=== PATIENT | female | born 1970 | race Hispanic/Latino ===

== ENCOUNTER 2018-12-01 06:12 | Day surgery (SDC) | payer BC ==
[2018-11-30 16:57] VITALS: BP 117/66
[2018-11-30 17:05] LABS: EOSINOPHILS % (AUTO) 4.8 % (0.0-8.0); HEMATOCRIT 31.9 % (36-48); MEAN CORPUSCULAR HEMOGLOBIN 27.9 pg (27.0-33.0); MEAN CORPUSCULAR HGB CONC 32.9 g/dL (32.0-36.0); MEAN CORPUSCULAR VOLUME 84.9 fL (79-99); MONOCYTES % (AUTO) 9.8 % (3.0-13.0); NEUTROPHILS % (AUTO) 52.4 % (40.0-77.0); NUCLEATED RED BLOOD CELLS 0.1 % (0.0-0.19); PLATELET COUNT (AUTO) 194 K/uL (130-400); RED BLOOD CELL COUNT(AUTO) 3.76 MIL/uL (4.00-5.50); RED CELL DISTRIBUTION WIDTH 16.7 % (11.0-15.5); WHITE BLOOD COUNT (AUTO) 4.6 K/uL (4.8-10.8)
[~2018-12-01] VITALS: Ht 152.4 cm; Wt 58.4 kg
[2018-12-01] VITALS (21 sets, daily range): BP systolic 95–131; BP diastolic 42–66
[2018-12-01] MEDS ORDERED: CEFAZOLIN SODIUM 1 GM VIAL ONE (06:40)
[2018-12-01] MEDS: CEFAZOLIN SODIUM 1 GM VIAL IVP ONE ×2 (07:09→07:20)
[2018-12-01] MEDS ORDERED: LIDOCAINE PF 2% 5ML ABBOJECT ONE (07:12)
[2018-12-01] MEDS ORDERED: MIDAZOLAM HCL 1 MG/ML 2ML VIAL ONE (07:13)
[2018-12-01] MEDS ORDERED: PROPOFOL 10 MG/ML 20ML VIAL IV ONE (07:13)
[2018-12-01] MEDS ORDERED: ROCURONIUM 10MG/1ML SYR 10 MG/ML ML ONE (07:13)
[2018-12-01] MEDS ORDERED: FENTANYL CITRATE PF 50 MCG/1 ML 2ML VIAL ONE ×2 (07:15→08:16)
[2018-12-01] MEDS ORDERED: ONDANSETRON HCL 4 MG/2 ML VIAL ONE ×2 (07:15→10:37)
[2018-12-01] MEDS ORDERED: CALDOLOR 800MG+NS 250ML 250 ML IV ONE (07:15)
[2018-12-01] MEDS ORDERED: GLYCOPYRROLATE 1 MG/5 ML SYRINGE ONE (07:42)
[2018-12-01] MEDS ORDERED: LACTATED RINGERS 1000ML 1,000 ML IV SCH (08:00)
[2018-12-01] MEDS ORDERED: NEOSTIGMINE 5MG/5ML SYR IV ONE (08:19)
[2018-12-01] MEDS ORDERED: MEPERIDINE-PF 25 MG/ML SYG ONE ×2 (08:55→09:04)
--- NOTE | 2018-12-01 09:40 | NUR ---
POST-OP RECEIVED FROM PACU VIA STRETCHER S/P D&C AND ANTERIOR REPAIR. DROWSY, BUT AROUSABLE. CONNECTED TO CONTINUOUS CARDIOPULMONARY MONITORING. SCANT SANGINOUS VAGINAL BLEEDING TO ROBERT PAD.
[2018-12-01] MEDS ORDERED: ONDANSETRON HCL MDV 20ML 2 MG/ML VIAL ONE (09:58)
--- NOTE | 2018-12-01 10:02 | NUR ---
POST-OP C/O NAUSEA W/ DRY HEAVES. ZOFRAN 4MG IVP ADMINISTERED. WILL CONTINUE TO MONITOR.
--- NOTE | 2018-12-01 10:41 | NUR ---
POST-OP PT CONTINUES TO C/O OF NAUSEA W/ DRY HEAVES. ZOFRAN 4MG IVP ADMINISTERED. WILL CONTINUE TO MONITOR.
--- NOTE | 2018-12-01 10:50 | NUR ---
ACTIVITY UP TO CHAIR W/ MINIMAL ASSIST OF 1. TOLERATED W/O COMPLICATIONS, BUT CONTINUES TO C/O OF NAUSEA. EATING ICE CHIPS. WILL CONTINUE TO MONITOR. B/P STABLE 117/70.
--- NOTE | 2018-12-01 11:00 | NUR ---
PLACED PT ON BED FERNANDEZ, BUT UNABLE TO VOID. WILL CONTINUE TO MONITOR.
--- NOTE | 2018-12-01 11:20 | NUR ---
DISCHARGE DAY PT DISCHARGE INSTRUCTION SHEET AND PT EDUCATION REVIEWED WITH PT AND DAUGHTER. BOTH VERBALIZED UNDERSTANDING. OPPORTUNITY GIVEN TO ASK QUESTIONS. QUESTIONS ADDRESSED. WILL WAIT FOR PT TO VOID PRIOR TO DISCHARGING.
--- NOTE | 2018-12-01 11:40 | NUR ---
AMBULATED TO RESTROOM W/ MINIMAL ASSIST OF 1. PT ABLE TO VOID. SCANT SANGINOUS DRAINAGE TO ROBERT PAD.
--- NOTE | 2018-12-01 11:45 | NUR ---
DISCHARGE DISCHARGED VIA W/C. AWAKE IN NO ACUTE DISTRESS.
== END 2018-12-01 11:45 | disposition home or self-care (01) ==
LOC: DAH 06:12
PROVIDERS: ATTEND Obstetrics & Gynecology
DX: N84.0 Polyp of corpus uteri (principal); N39.3 Stress incontinence (female) (male); N81.10 Cystocele, unspecified; E11.9 Type 2 diabetes mellitus without complications; I10 Essential (primary) hypertension; Z98.51 Tubal ligation status; Z79.899 Other long term (current) drug therapy; Z98.890 Other specified postprocedural states; K21.9 Gastro-esophageal reflux disease without esophagitis
CPT/HCPCS: 36415 ×2; 57240; 58563; 84703; 85025; 86850; 86900; 86901; 88305; A4218; A4351; C1769; J0690; J1741; J2001; J2175 ×2; J2250; J2405 ×2; J2704; J2710; J3010 ×2; J3490; J7030; J7120

== ENCOUNTER 2023-12-25 09:59 | Emergency (ER) | payer BC ==
[~2023-12-25] VITALS: Ht 152.4 cm; Wt 74.8 kg
[2023-12-25 10:15] VITALS: BP 134/77; PULSE 82; RESP 17; O2SAT 98
[2023-12-25] MEDS: METHOCARBAMOL 500 MG TABLET PO STA (10:26)
[2023-12-25] MEDS: KETOROLAC 15MG/ML VIAL (15MG/ML) IM STA (10:27)
[2023-12-25] MEDS ORDERED: METH-662 PO (10:59)
[2023-12-25] MEDS ORDERED: MELO10CA3 PO (10:59)
== END 2023-12-25 11:18 | disposition home or self-care (01) ==
LOC: EDH 09:59
DX: M25.512 Pain in left shoulder (principal)
CPT/HCPCS: 99284; 96372; J1885